=== PATIENT | female | born 1975 | race Caucasian/White ===

== ENCOUNTER 2021-12-02 20:24 | Emergency (ER) | payer OTHER ==
[2021-12-02 21:00] LABS: HCG,QUALITATIVE URINE Negative
[2021-12-02 21:09] VITALS: BP 143/97; PULSE 77; TEMP 98.5; BMI 27.4
== END 2021-12-02 22:10 | disposition home or self-care (01) ==
LOC: FER 20:24
DX: R10.2 Pelvic and perineal pain (principal)
CPT/HCPCS: 81003; 81015; 81025; 84703; 99283-25